=== PATIENT | female | born 1980 | race Caucasian/White ===

== ENCOUNTER 2022-06-13 09:48 | Emergency (ER) | payer MEDICAID ==
[~2022-06-13] VITALS: Ht 165.1 cm; Wt 144.2 kg
[~2022-06-13 09:48] MED LIST: ALB2T
[2022-06-13 10:05] VITALS: BP 141/93
== END 2022-06-13 15:09 | disposition left against medical advice (07) ==
LOC: ER 09:48
DX: J02.9 Acute pharyngitis, unspecified (principal); H92.02 Otalgia, left ear; Z53.21 Procedure and treatment not carried out due to patient leaving prior to being seen by health care provider

== ENCOUNTER 2025-05-18 08:52 | Inpatient (IN) | payer MEDICAID ==
[~2025-05-18] VITALS: Ht 167.6 cm; Wt 88.6 kg
[~2025-05-18 08:52] MED LIST changes: -ALB2T; +ALBU2TAB47; +HYDR-3682 PO; +LORA-622 PO; +PRED20TA2 PO
--- NOTE | 2025-05-18 09:56 | ED.PDOC ---
History of Present Illness HPI Comments Ms. Cheung is a 44 year old female prior medical history of constipation, hypertension, bipolar disease, cervical dysplasia status post hysterectomy, and substance use, who presents today with chief complaint of abdominal pain. The patient states that the last month she has had constant periumbilical pain described as burning/sharp, nonradiating, 7-10/10 intensity, previously aggravated by eating now constant, without relieving factors, associated with nausea and cold sweats. She denies fever, vomiting, diarrhea, flank pain, chest pain, dysuria, hematuria, hematochezia, melena, vaginal discharge or bleeding. Patient states that the pain has become unbearable and she is unable to eat without pain, thus why she presents for evaluation in the emergency department. Chief Complaint: Abdominal Pain Time Seen by MD: 09:30 Primary Care Provider: NONE Allergies: Coded Allergies: Acetaminophen (Verified Adverse Reaction, Unknown, VOMITING, 01/18/23) Hydrocodone (Verified Adverse Reaction, Unknown, VOMITING, 01/18/23) Home Meds Active Scripts Hydroxyzine Hcl (Hydroxyzine Hcl) 25 Mg Tab, 25 MG PO DAILYP PRN for 5 Days, #5 TAB 0 Refills Prov:ALMA DE SANTIAGO [employer]MBEDDED FIRMWARE ENGINEER 01/06/23 Loratadine (Claritin) 10 Mg Tab, 1 TAB PO DAILY for 10 Days, #10 TAB 0 Refills Prov:ALMA DE SANTIAGO [employer]MB[employer]ED FIRMWARE ENGINEER 01/06/23 Prednisone (Prednisone) 20 Mg Tab, 20 MG PO DAILY for 5 Days, #5 TAB 0 Refills Prov:ALMA DE SANTIAGO NP 01/06/23 Reported Medications Albuterol Sulfate (Ventolin) 2 Mg Tb 06/12/10 Information Source: Patient, Relative (Mother) Mode of Arrival: Ambulatory Severity: Mild Timing: Weeks Duration: Since onset Past Medical History PAST MEDICAL HISTORY: HTN Past Medical History (Other): Bipolar disease, constipation Surgical History: Cholecystectomy, Hysterectomy (Due to cervical dysplasia) Surgical History (Other): Gastric sleeve [employer]ACHINE History: Other (Cervical dysplasia) Family History Family History: Family hx of DM, Family hx of HTN Family History (Other): Mother diagnosed with lupus, father with pancreatic cancer Social History Smoker: Non-Smoker Alcohol: Sober (Previous history of heavy alcohol use) Drugs: Methamphetamine (Patient used methamphetamines for 5 years, with cessation 3 years ago) Lives In: Home Constitutional: denies: chills, diaphoresis, fatigue, fever, malaise, sweats, weakness EENTM: denies: blurred vision, double vision, mouth pain, mouth swelling, nasal discharge, nose bleeding, nose congestion, nose pain Respiratory: denies: cough, hemoptysis, orthopnea, shortness of breath Cardiovascular: denies: chest pain, dizzy spells, diaphoresis, Dyspnea on exertion, edema, lightheadedness, palpitations Gastrointestinal: reports: abdominal pain, nausea, poor appetite; denies: abdomen distended, blood streaked bowels, constipated, diarrhea, dysphagia, difficulty swallowing, hematemesis, melena, poor fluid intake, rectal bleeding, rectal pain, vomiting Genitourinary: denies: abnormal vagina bleeding, burning, dysuria, flank pain, frequency, hematuria, incontinence, pain, vagina discharge, urgency Neurological: denies: dizziness, fainting, headache, numbness, paresthesia, seizure, speech problems, tingling, tremors, weakness Musculoskeletal: reports: back pain; denies: joint pain, joint swelling, muscle pain, muscle stiffness, neck pain Integumetry: denies: bruises, dryness, laceration, lesions, lumps, rash, wounds Physical Exam General Appearance: Mild Distress HEENT: Head (Normocephalic, atraumatic ), PERRL/EOMI, Pharynx Normal, Other (Fissured tongue ) Neck: Full Range of Motion, Non-Tender, Normal Inspection Respiratory: Chest Non-Tender, No Accessory Muscle Use, No Respiratory Distress, Normal Breath Sounds Cardiovascular: No Edema, No Murmur, Normal Peripheral Pulses, Regular Rate/Rhythm Breast Exam: Deferred Gastrointestinal: Non Tender, No Pulsatile Mass, Normal Bowel Sounds, Soft Genitalia: Deferred Pelvic: Deferred Rectal: Deferred Extremities: Normal capillary refill, Normal inspection, Normal range of motion, Non-tender, No pedal edema Neurologic: No Motor Deficits, Normal Affect, Normal Mood, No Sensory Deficits Cerebellar Function: Normal Reflexes: NOT DONE Skin: Normal Color Lymphatic: Other (No cervical adenopathy ) Was a procedure done? Was a procedure done?: No Differential Dx Considerations may include: Gastroenteritis, colitis, gastritis, hepatitis, pancreatitis, cholecystitis X-Ray, Labs, Meds, VS Vital Signs Date Time Temp Pulse Resp B/P (MAP) Pulse Ox O2 Delivery O2 Flow Rate FiO2 05/18/25 12:06 70 16 152/100 (117) 100 05/18/25 09:57 80 17 100 Room Air 05/18/25 09:57 98.7 80 16 150/101 (117) 100 98.7 05/18/25 08:54 98.0 83 17 152/96 100 98.0 Lab Test 05/18/25 10:28 05/18/25 09:50 Range/Units White Blood Count 3.7 L 4.4-10.8 10^3/uL Red Blood Count 4.43 4.0-5.20 10^6/uL Hemoglobin 12.7 12.2-16.2 g/dL Hematocrit 37.4 36.0-46.0 % Mean Corpuscular Volume 84.5 80.0-100.0 fL Mean Corpuscular Hemoglobin 28.8 28.0-32.0 pg Mean Corpuscular Hemoglobin Concent 34.0 32.0-36.0 g/dL Red Cell Distribution Width 13.0 11.8-14.3 % Platelet Count 208 140-450 10^3/uL Mean Platelet Volume 8.6 6.9-10.8 fL Neutrophils (%) (Auto) 82.5 H 37.0-80.0 % Lymphocytes (%) (Auto) 11.1 10.0-50.0 % Monocytes (%) (Auto) 4.4 0.0-12.0 % Eosinophils (%) (Auto) 1.3 0.0-7.0 % Basophils (%) (Auto) 0.7 0.0-2.0 % Neutrophils # (Auto) 3.1 1.6-8.6 10 ^3/uL Lymphocytes # (Auto) 0.4 0.4-5.4 10 ^3/uL Monocytes # (Auto) 0.2 0-1.3 10 ^3/uL Eosinophils # (Auto) 0 0-0.8 10 ^3/uL Basophils # (Auto) 0 0-0.2 10 ^3/uL Nucleated Red Blood Cells 0.2 % Sodium Level 137 136-145 mmol/L Potassium Level 4.9 3.5-5.1 mmol/L Chloride Level 102 98-107 mmol/L Carbon Dioxide Level 26 20-31 mmol/L Anion Gap 9 5-15 Blood Urea Nitrogen 18 9-23 mg/dL Creatinine 0.75 0.550-1.02 mg/dL Glomerular Filtration Rate Calc 101 >90 mL/min BUN/Creatinine Ratio 24.0 H 10.0-20.0 Serum Glucose 84 74-106 mg/dL Calcium Level 9.1 8.7-10.4 mg/dL Total Bilirubin 0.5 0.2-1.0 mg/dL Aspartate Amino Transferase (AST) 458 H 13-40 U/L Alanine Aminotransferase (ALT) 171 H 7-40 U/L Alkaline Phosphatase 336 H 46-116 U/L Total Protein 8.2 5.7-8.2 g/dL Albumin 4.2 3.2-4.8 g/dL Lipase 37 12-53 U/L Urine Color Yellow Yellow Urine Clarity Turbid H Clear Urine pH 7.5 5.0-9.0 Urine Specific [place] 1.021 1.001-1.035 Urine Protein Negative Negative Urine Ketones Negative Negative Urine Blood Negative Negative /uL Urine Nitrite Negative Negative Urine Bilirubin Negative Negative Urine Urobilinogen 2 H Negative mg/dL Urine Leukocyte Esterase Negative Negative /uL Urine RBC 2 0 - 4 /hpf Urine Microscopic WBC 1 0-5 /HPF Urine Squamous Epithelial Cells Mod <5 /hpf Urine Bacteria None seen None Seen /hpf Urine Yeast (Budding) Occasional None Seen /hpf Urine Glucose Normal Normal mg/dL Urine Opiates Screen Pos NEGATIVE Urine Fentanyl Screen Neg NEGATIVE Urine Barbiturates Screen Neg NEGATIVE Urine Phencyclidine Screen Neg NEGATIVE Urine Amphetamines Screen Pos NEGATIVE Urine Benzodiazepines Screen Neg NEGATIVE Urine Cocaine Screen Neg NEGATIVE Urine Cannabinoids Screen Neg NEGATIVE Time of 1ST Reevaluation: 12:00 Reevaluation 1ST: Unchanged Patient Education/Counseling: Diagnosis, Treatment Family Education/Counseling: Diagnosis, Treatment Comments Patient presented today with chief complaint of abdominal pain for the last month On examination, vitals were stable, there are dry mucous membranes, without other positive findings CBC shows leukopenia with mild neutrophilia, CMP shows elevated AST, ALT, and ALP, UDS positive for opiates and methamphetamines Abdominal CT shows no acute abdominal findings and a 4 cm right ovarian cystic lesion I discussed with the patient would benefit from admission for further workup and monitoring Consider GI consultation SEPSIS Sepsis Screen Date sepsis recognized/suspect: May 18, 2025 Time Sepsis recognized/suspect: 853 Recent Procedure: No On Antibiotic Therapy: No Respiratory Rate >20: No Heart Rate >90: No Temp<36 C (96.8 F) or >38.3 C: No SBP <90 or MAP <65 mmHG: No New Acute Mental Status Change: No Is the patient on CPAP, BIPAP,: No Physician Orders Ct Ab Pel Wo Con-No Oral Or Iv (05/18/25 09:57) Vital Signs Date Time Temp Pulse Resp B/P (MAP) Pulse Ox O2 Delivery O2 Flow Rate FiO2 05/18/25 12:06 70 16 152/100 (117) 100 05/18/25 09:57 80 17 100 Room Air 05/18/25 09:57 98.7 80 16 150/101 (117) 100 98.7 05/18/25 08:54 98.0 83 17 152/96 100 98.0 Laboratory Tests Test 05/18/25 10:28 White Blood Count 3.7 10^3/uL (4.4-10.8) L Departure 1 Departure Time of Disposition: 12:39 Impression: Primary Impression: Intractable abdominal pain Disposition: 30 STILL A PATIENT Admit to: Med Surg Condition: Stable Critical Care Note Critical Care Time?: No Stability Stability form required: WARREN Coreas RESIDENT May 18, 2025 09:56
--- NOTE | 2025-05-18 10:40 | DVH ---
Exam: CT CT AB PEL WO CON-NO ORAL OR IV History: Abdominal pain Comparison Study: None Technique: Multidetector spiral CT of the abdomen and pelvis was performed from lung bases to pubic s ymphysis. Imaging was performed without intravenous contrast. Coronal and sagittal multiplanar reform ats were obtained from the axial data set by the technologist. Radiation Dose : 1. Abdomen/Pelvis: CTDIvol 15.2 mGy, DLP 816.2 mGy*cm. Findings: Evaluation of vasculature and solid organs is limited due to lack of intravenous contrast use. Lung Bases: Lung bases are clear. Visualized portions of the heart and pericardium are unremarkable. Liver: The liver is normal in size. No focal lesions. Gallbladder and Biliary Tree: The gallbladder is surgically absent. No intrahepatic or extrahepatic b iliary ductal dilatation. Spleen: Unremarkable Pancreas: The pancreas is grossly unremarkable. Adrenal Glands: Unremarkable Kidneys: Kidneys are unremarkable without calculi or hydronephrosis. GI tract: There are postsurgical changes in the stomach. No evidence of small bowel wall thickening o r abnormal dilatation to suggest bowel obstruction. The colon is unremarkable. The appendix is not vi sualized, however no inflammatory changes in the right lower quadrant to suggest acute appendicitis. Peritoneum/mesentery/retroperitoneum. No evidence of free intraperitoneal air. No ascites. No evidenc e of suspicious lymphadenopathy. Abdominal Wall: Unremarkable. Vasculature: The visualized abdominal aorta is normal in size and caliber. Evaluation of abdominal a nd pelvic vessels is limited due to lack of intravenous contrast. Urinary Bladder: Grossly unremarkable for degree of distention. Pelvic Organs: There is a 4.6 cm cystic lesion in the pelvis. Hysterectomy. Musculoskeletal: No aggressive focal bony lesions, acute fractures or dislocation. IMPRESSION: 1. No acute abdominal or pelvic findings. 2. 4.6 cm cystic lesion in the pelvis, likely ovarian in origin. Pelvic ultrasound is recommended for further evaluation.
[2025-05-18 10:59] LABS: Hematocrit 37.4 % (36.0-46.0); Hemoglobin 12.7 g/dL (12.2-16.2); Mean Corpuscular Hemoglobin 28.8 pg (28.0-32.0); Mean Corpuscular Volume 84.5 fL (80.0-100.0); Nucleated Red Blood Cells % 0.2 %
[2025-05-18 11:09] LABS: Urine Budding Yeast OCCASIONAL /hpf (None Seen); Urine Protein, UAD Negative (Negative)
[2025-05-18 11:14] LABS: Albumin 4.2 g/dL (3.2-4.8); Anion Gap 9 (5-15); BUN/Creatinine Ratio 24.0 (10.0-20.0); Bilirubin, Total 0.5 mg/dL (0.2-1.0); Blood Urea Nitrogen 18 mg/dL (9-23); Calcium 9.1 mg/dL (8.7-10.4); Carbon Dioxide 26 mmol/L (20-31); Chloride 102 mmol/L (98-107); Glucose 84 mg/dL (74-106); Lipase 37 U/L (12-53); Potassium 4.9 mmol/L (3.5-5.1); Sodium 137 mmol/L (136-145); Total Protein 8.2 g/dL (5.7-8.2)
[2025-05-18 11:18] LABS: Alanine Aminotransferase 171 U/L (7-40); Alkaline Phosphatase 336 U/L (46-116)
[2025-05-18 11:18] LABS: Amphetamine Screen, Urine Pos (NEGATIVE); Opiate Scree,Urine Pos (NEGATIVE)
[2025-05-18 11:24] LABS: Barbiturate Scree,Urine Neg (NEGATIVE); Benzodiazephine Screen, Urine Neg (NEGATIVE); Cannabinoid Screen, Urine Neg (NEGATIVE); Cocaine Screen, Urine Neg (NEGATIVE); Phencyclidine Screen, Urine Neg (NEGATIVE)
[2025-05-18] MEDS ORDERED: ONDANSETRON HCL 4 MG/2 ML VIAL IV PRN (15:30)
--- NOTE | 2025-05-18 15:37 | DVHHPRES ---
History of Present Illness Resident Creating Document: JEANETH DUARTE RESIDENT History of Present Illness Patient is a 44-year-old female with past medical history of hypertension, who comes in due to acute intractable abdominal pain. According to the patient, she has been experiencing abdominal pain for the past 1 month, which he describes as burning in character, localized to the periumbilical area, 7/10 in intensity without any exacerbating or relieving factors and associated with nausea. Patient notes that over the last 2 days her pain continued to worsen, she had an appointment with her PCP Dr. Vee on 05/27/2025, however, pain continued to become intolerable which is what prompted this visit to the hospital. On review of systems patient is complaining of nausea, urinary frequency. CT abdomen pelvis shows no acute abdominopelvic findings. 4.6 cm cystic lesion in the pelvis likely ovarian in origin. Patient also notes a weight loss of approximately 100 lb since getting the gastric sleeve surgery. Past Medical History Hypertension Past Surgical History Cholecystectomy 23 years ago, hysterectomy 2 years ago, gastric sleeve surgery 1 year ago Family History Pancreatic cancer in father Past Social History Smoking: Denies Alcohol: Denies, remote history of heavy alcohol use for approximately 10 years Drugs: Denies Review of Systems Constitutional: No: Fever, Chills, Sweats, Weakness, Malaise, Other Eyes: No: Pain, Vision change, Conjunctivae inflammation, Eyelid inflammation, Other, Redness ENT: No: Ear pain, Ear discharge, Nose pain, Nose discharge, Nose congestion, Mouth pain, Mouth swelling, Throat pain, Throat swelling, Other Respiratory: No: Cough, Dry, Shortness of breath, SOB with excertion, Wheezing, Hemoptysis, Pleuritic Pain, Sputum, Wheezing, Other Cardiovascular: No: Chest Pain, Palpitations, Orthopnea, Paroxysmal Noc. Dyspnea, Edema, Lt Headedness, Other Gastrointestinal: Nausea; No: Vomiting, Abdominal Pain, Diarrhea, Constipation, Melena, Hematochezia, Other Genitourinary: No Dysuria; Frequency; No Incontinence, No Hematuria, No Retention, No Other Musculoskeletal: No: other, neck pain, shoulder pain, arm pain, back pain, hand pain, leg pain, foot pain Skin: No: Rash, Lesions, Jaundice, Bruising, Other Neurological: No: Weakness, Numbness, Incoordination, Change in speech, Confusion, Seizures, Other Allergies: Coded Allergies: Acetaminophen (Verified Adverse Reaction, Unknown, VOMITING, 01/18/23) Hydrocodone (Verified Adverse Reaction, Unknown, VOMITING, 01/18/23) Exam Vital Signs Vital Signs Date Time Temp Pulse Resp B/P (MAP) Pulse Ox O2 Delivery O2 Flow Rate FiO2 05/18/25 14:03 77 18 111/83 (92) 96 05/18/25 09:57 Room Air 05/18/25 09:57 98.7 98.7 General Appearance: Alert, Oriented X3, Cooperative, mild distress HEENT: Atraumatic, PERRLA, EOMI, Other (Dry mucous membrane) Respiratory: Normal air movement Cardiovascular: Regular rate, Normal S1, Normal S2 Abdominal: Normal bowel sounds, Other (Generalized abdominal tenderness to palpation most prominent in the left upper and lower quadrants) Extremities: No edema Skin: No rashes Neuro: Normal gait, Normal speech Psych/Mental Status: Mental status NL, Mood NL Labs/Xrays Labs Test 05/18/25 10:28 05/18/25 09:50 Range/Units White Blood Count 3.7 L 4.4-10.8 10^3/uL Red Blood Count 4.43 4.0-5.20 10^6/uL Hemoglobin 12.7 12.2-16.2 g/dL Hematocrit 37.4 36.0-46.0 % Mean Corpuscular Volume 84.5 80.0-100.0 fL Mean Corpuscular Hemoglobin 28.8 28.0-32.0 pg Mean Corpuscular Hemoglobin Concent 34.0 32.0-36.0 g/dL Red Cell Distribution Width 13.0 11.8-14.3 % Platelet Count 208 140-450 10^3/uL Mean Platelet Volume 8.6 6.9-10.8 fL Neutrophils (%) (Auto) 82.5 H 37.0-80.0 % Lymphocytes (%) (Auto) 11.1 10.0-50.0 % Monocytes (%) (Auto) 4.4 0.0-12.0 % Eosinophils (%) (Auto) 1.3 0.0-7.0 % Basophils (%) (Auto) 0.7 0.0-2.0 % Neutrophils # (Auto) 3.1 1.6-8.6 10 ^3/uL Lymphocytes # (Auto) 0.4 0.4-5.4 10 ^3/uL Monocytes # (Auto) 0.2 0-1.3 10 ^3/uL Eosinophils # (Auto) 0 0-0.8 10 ^3/uL Basophils # (Auto) 0 0-0.2 10 ^3/uL Nucleated Red Blood Cells 0.2 % Sodium Level 137 136-145 mmol/L Potassium Level 4.9 3.5-5.1 mmol/L Chloride Level 102 98-107 mmol/L Carbon Dioxide Level 26 20-31 mmol/L Anion Gap 9 5-15 Blood Urea Nitrogen 18 9-23 mg/dL Creatinine 0.75 0.550-1.02 mg/dL Glomerular Filtration Rate Calc 101 >90 mL/min BUN/Creatinine Ratio 24.0 H 10.0-20.0 Serum Glucose 84 74-106 mg/dL Calcium Level 9.1 8.7-10.4 mg/dL Total Bilirubin 0.5 0.2-1.0 mg/dL Aspartate Amino Transferase (AST) 458 H 13-40 U/L Alanine Aminotransferase (ALT) 171 H 7-40 U/L Alkaline Phosphatase 336 H 46-116 U/L Total Protein 8.2 5.7-8.2 g/dL Albumin 4.2 3.2-4.8 g/dL Lipase 37 12-53 U/L Urine Color Yellow Yellow Urine Clarity Turbid H Clear Urine pH 7.5 5.0-9.0 Urine Specific [place] 1.021 1.001-1.035 Urine Protein Negative Negative Urine Ketones Negative Negative Urine Blood Negative Negative /uL Urine Nitrite Negative Negative Urine Bilirubin Negative Negative Urine Urobilinogen 2 H Negative mg/dL Urine Leukocyte Esterase Negative Negative /uL Urine RBC 2 0 - 4 /hpf Urine Microscopic WBC 1 0-5 /HPF Urine Squamous Epithelial Cells Mod <5 /hpf Urine Bacteria None seen None Seen /hpf Urine Yeast (Budding) Occasional None Seen /hpf Urine Glucose Normal Normal mg/dL Urine Opiates Screen Pos NEGATIVE Urine Fentanyl Screen Neg NEGATIVE Urine Barbiturates Screen Neg NEGATIVE Urine Phencyclidine Screen Neg NEGATIVE Urine Amphetamines Screen Pos NEGATIVE Urine Benzodiazepines Screen Neg NEGATIVE Urine Cocaine Screen Neg NEGATIVE Urine Cannabinoids Screen Neg NEGATIVE SEPSIS Sepsis Screen Date sepsis recognized/suspect: May 18, 2025 Time Sepsis recognized/suspect: 0854 Recent Procedure: No On Antibiotic Therapy: No Respiratory Rate >20: No Heart Rate >90: No Temp<36 C (96.8 F) or >38.3 C: No SBP <90 or MAP <65 mmHG: No New Acute Mental Status Change: No Is the patient on CPAP, BIPAP,: No Physician Orders Ct Ab Pel Wo Con-No Oral Or Iv (05/18/25 09:57) Vital Signs Date Time Temp Pulse Resp B/P (MAP) Pulse Ox O2 Delivery O2 Flow Rate FiO2 05/18/25 14:03 77 18 111/83 (92) 96 05/18/25 12:06 70 16 152/100 (117) 100 05/18/25 09:57 80 17 100 Room Air 05/18/25 09:57 98.7 80 16 150/101 (117) 100 98.7 05/18/25 08:54 98.0 83 17 152/96 100 98.0 Laboratory Tests Test 05/18/25 10:28 White Blood Count 3.7 10^3/uL (4.4-10.8) L Assessment/Plan Assessment/Plan Acute intractable abdominal pain possibly due to pelvic cystic lesion? Transaminitis - complete abdominal ultrasound - hepatitis panel - serum lipase, serum lactic acid - stool studies - ordered beta hCG Leukopenia Immunocompromised due to above - HIV 1 and 2 - rule out COVID and influenza Essential hypertension - resumed home medication lisinopril 40 mg - resumed home medication amlodipine 2.5 mg PUD prophylaxis: protonix 40mg DVT prophylaxis: Levonox 40mg Goals of care: Full code, discussed for >16 minutes on 05/18/2025 Plan discussed with patient Plan discussed with Dr. Ratliff Plan discussed with: Patient, Other (Mother) Date of Service: May 18, 2025 Billing Provider: JEANETH DUARTE Common Visit Codes: [id number] INP/OBS CARE (HIGH) JEANETH DUARTE May 18, 2025 15:37
[2025-05-18 16:16] LABS: Albumin 4.5 g/dL (3.2-4.8); Anion Gap 7 (5-15); BUN/Creatinine Ratio 23.1 (10.0-20.0); Bilirubin, Total 0.4 mg/dL (0.2-1.0); Blood Urea Nitrogen 18 mg/dL (9-23); Calcium 9.3 mg/dL (8.7-10.4); Carbon Dioxide 26 mmol/L (20-31); Chloride 103 mmol/L (98-107); Glucose 81 mg/dL (74-106); Potassium 4.4 mmol/L (3.5-5.1)
[2025-05-18 16:19] LABS: Alkaline Phosphatase 319 U/L (46-116); Sodium 136 mmol/L (136-145)
[2025-05-18 16:20] LABS: Alanine Aminotransferase 159 U/L (7-40); Total Protein 8.7 g/dL (5.7-8.2)
[2025-05-18 16:39] LABS: COVID19 ANTIGEN SOFIA FIA NEGATIVE (NEGATIVE)
[2025-05-18] MEDS ORDERED: ALBUTEROL SULF 2.5 MG/0.5ML(0.5%) NEB SOLN NEB PRN (16:45)
[2025-05-18 16:55] VITALS: BP 147/84; PULSE 62; RESP 17; TEMP 97.7; O2SAT 100
--- NOTE | 2025-05-18 17:10 | DVH ---
ULTRASOUND ABDOMEN, LIMITED RIGHT UPPER QUADRANT: REASON FOR EXAM: Evaluate right upper quadrant TECHNIQUE: Real-time sector scans in the transverse and longitudinal planes were obtained through th e right upper quadrant of the abdomen. FINDINGS: The liver is borderline enlarged at 17.4 cm in length. The liver demonstrates normal echot exture and smooth surface. There is hepatopetal flow in the portal vein. There is no intrahepatic shira iary ductal dilatation. The common bile duct measures 7 mm. The gallbladder is surgically absent. The pancreas is mostly obscured by bowel gas. The right kidney measures 9.8 cm. No hydronephrosis or nephrolithiasis is identified. There is no e vidence of right renal mass or cyst. The visualized portions of the abdominal aorta demonstrate no evidence of aneurysmal dilatation. The visualized inferior vena cava is unremarkable. There is no free fluid identified in the right upper quadrant. IMPRESSION: Borderline hepatomegaly at 17.4 cm in length. This may be normal in a patient of tall stature. The gallbladder is surgically absent.
--- NOTE | 2025-05-18 17:35 | DVH ---
INDICATION: Pelvic Cystic lesion TECHNIQUE: Multiple real-time grayscale transabdominal sonographic images along with color and duplex Doppler of the uterus and ovaries were obtained. COMPARISON: None FINDINGS: The uterus patient is status post hysterectomy The right ovary measures ovary noted in the pelvic midline measuring 5.4 x 3 by 4.9 cm. There appears to be multiple cystic structures within it and debris. Largest anechoic structure is 3.6 x 2.8 x 4 c m. There appears to be wall thickening measuring 2.3 x 2.9 x 1.9 cm. cm. The left ovary measures indeterminate which ovary is noted in the abdominal midline. cm. Subsequent color and duplex Doppler interrogation of the ovaries demonstrated symmetric vascular flow to both ovaries, though this does not exclude the possibility of torsion due to the dual blood suppl y. IMPRESSION: 1. 0.4 x 3 by 2.9 cm cystic area in the abdominal midline containing multiple anechoic areas. Study i s indeterminate as of the right or left ovary.
[2025-05-18] MEDS ORDERED: LISI40TA16 PO (17:47)
[2025-05-18] MEDS ORDERED: AMLO1TAB21 PO (17:47)
[2025-05-18] MEDS: KETOROLAC TROMETH 30 MG/ML 1ML VIAL IV PRN (18:43)
--- NOTE | 2025-05-18 18:52 | ECG ---
[facility] Test Date: 2025-05-18 Test Time: 18:50:16 Pat Name: ELLEN MENEZES Department: Respiratoy Room: 0236 Gender: F Trim Stencil Maker: JACKY : 1980 Requested By: JEANETH DUARTE Order Number: [id number] Reading MD: Measurements Intervals [place] Rate: 77 P: 11 ND: 140 QRS: 63 QRSD: 105 T: 8 QT: 395 QTc: 448 Interpretive Statements Sinus rhythm Abnormal inferior Q waves Minimal ST elevation, anterior leads Please click the below link to view image of tracing.
[2025-05-18 20:00] VITALS: PULSE 70; RESP 19; O2SAT 100
[2025-05-18 21:00] VITALS: BP 136/82; PULSE 70; RESP 19; TEMP 98.3; O2SAT 100
[2025-05-19] VITALS (10 sets, daily range): BP systolic 118–145; BP diastolic 75–103; PULSE 60–76; RESP 16–19; TEMP 97.5–98.6; O2SAT 98–100
[2025-05-19 05:50] LABS: Hematocrit 34.6 % (36.0-46.0); Hemoglobin 12.0 g/dL (12.2-16.2); Mean Corpuscular Hemoglobin 29.2 pg (28.0-32.0); Mean Corpuscular Volume 84.5 fL (80.0-100.0); Nucleated Red Blood Cells % 0.1 %
[2025-05-19 06:07] LABS: Albumin 3.8 g/dL (3.2-4.8); Anion Gap 8 (5-15); BUN/Creatinine Ratio 25.0 (10.0-20.0); Blood Urea Nitrogen 21 mg/dL (9-23); Calcium 8.8 mg/dL (8.7-10.4); Carbon Dioxide 26 mmol/L (20-31); Chloride 104 mmol/L (98-107); Glucose 77 mg/dL (74-106); Potassium 4.2 mmol/L (3.5-5.1); Sodium 138 mmol/L (136-145); Total Protein 7.3 g/dL (5.7-8.2)
[2025-05-19 06:08] LABS: Alanine Aminotransferase 101 U/L (7-40); Alkaline Phosphatase 224 U/L (46-116); Bilirubin, Total 0.4 mg/dL (0.2-1.0)
[2025-05-19] MEDS ORDERED: LISINOPRIL 20 MG TAB PO SCH (10:00)
[2025-05-19 10:05] LABS: Hepatitis B Surface Antigen Negative (Negative)
[2025-05-19] MEDS: LISINOPRIL 20 MG TAB PO SCH (10:15)
[2025-05-19 10:20] LABS: Hepatitis C Antibody Negative (Negative)
[2025-05-19] MEDS: ENOXAPARIN SOD 40 MG/0.4 ML SYRINGE SC SCH (11:08)
[2025-05-19] MEDS: PANTOPRAZOLE 40 MG/10 ML VIAL INJ IV SCH (11:21)
[2025-05-19] MEDS ORDERED: POLYETHYLENE GLYCOL 17 GM PWDR PO PRN (16:00)
--- NOTE | 2025-05-19 16:14 | DVHPNRES ---
Progress Note Date Seen: May 19, 2025 Resident Creating Document: KENDRICK JACKMAN RESIDENT Medical Necessity Reason Pt with a Central, PICC or Fol: No Subjective Review of Systems History on admission: Patient is a 44-year-old female with past medical history of hypertension, who comes in due to acute intractable abdominal pain. According to the patient, she has been experiencing abdominal pain for the past 1 month, which he describes as burning in character, localized to the periumbilical area, 7/10 in intensity without any exacerbating or relieving factors and associated with nausea. Patient notes that over the last 2 days her pain continued to worsen, she had an appointment with her PCP Dr. Vee on 05/27/2025, however, pain continued to become intolerable which is what prompted this visit to the hospital. On review of systems patient is complaining of nausea, urinary frequency. CT abdomen pelvis shows no acute abdominopelvic findings. 4.6 cm cystic lesion in the pelvis likely ovarian in origin. Patient also notes a weight loss of approximately 100 lb since getting the gastric sleeve surgery. Previous hospitalization: PMHx: Hypertension PSHx: Cholecystectomy 23 years ago, hysterectomy 2 years ago, gastric sleeve surgery 1 year ago Family history: Pancreatic cancer and heart failure in father Social history: Reportedly quit methamphetamine and alcohol use 2 years back. Denies smoking. Home medication: Polyethylene glycol for constipation Allergic history: Acetaminophen hydrocodone ROS: Constitutional: Denies weight loss, fever and chills. HEENT: Denies changes in vision and hearing. Respiratory: Denies shortness of breath and cough Cardiovascular: Denies chest discomfort or palpitations GI: Abdominal pain, constipation and nausea. Denies vomiting, diarrhea : Denies dysuria and urinary frequency. Musculoskeletal: Denies myalgias and joint pain Skin: Denies rash and pruritus. Neurological: Denies dizziness, headache, vision or hearing problems 05/19/2025: Patient was examined at bedside today. No new complaints. Objective vital signs Vital Sign Date Time Temp Pulse Resp B/P (MAP) Pulse Ox O2 Delivery O2 Flow Rate FiO2 05/19/25 12:21 98.0 69 18 145/103 (117) 98 98.0 05/19/25 11:12 0.0 05/19/25 07:23 Room Air 05/19/25 07:23 21 Total Intake and Output 05/18/25 05/18/25 05/19/25 15:00 23:00 07:00 Intake Total 0 ml 200 ml Balance 0 ml 200 ml medications Current Medications Medications Dose Ordered Sig/Jaye Route Start Time Stop Time Status Last Admin Dose Admin Ondansetron HCl 4 mg Q4HP PRN IV 05/18/25 15:30 Enoxaparin Sodium 40 mg DAILY SC 05/19/25 10:00 05/19/25 11:08 40 MG Pantoprazole Sodium 40 mg DAILY IV 05/19/25 10:00 05/19/25 11:21 40 MG Ketorolac Tromethamine 15 mg Q6HPRN PRN IV 05/18/25 16:45 05/23/25 16:44 05/19/25 11:22 15 MG Albuterol 1.25 mg Q4HPRN PRN NEB 05/18/25 16:45 Lisinopril 40 mg HS PO 05/19/25 10:15 Amlodipine Besylate 2.5 mg DAILY PO 05/19/25 14:00 Polyethylene Glycol 17 gm DAILYPRN PRN PO 05/19/25 16:00 UNV Examination General: Patient alert and oriented in person, place and time. Patient following commands. HEENT: Normocephalic, atraumatic, moist mucous membranes Respiratory/pulmonary: Clear lungs bilaterally, vesicular murmurs present in almost all lung abdul, no associated crackles or wheezes. Cardiovascular: Normal heart sounds S1 and S2 with no associated murmurs Abdomen: Generalized abdominal tenderness on deep palpation Extremities: There is no peripheral edema present at the lower extremities. Peripheral Pulses: 3+ Radial (R). 3+ Radial (L). 3+ Dorsalis pedis (R). 3+ Dorsalis pedis(L) Skin: No rashes or pruritus, there is no sacral edema present at this time. Neurological: Intact cranial nerves with no focal neurologic deficits laboratory and microbiology Laboratory Tests 05/19/25 04:46 Test 05/19/25 04:46 Range/Units Serum Glucose 77 74-106 mg/dL Microbiology Date/Time Source Procedure Growth Status 05/19/25 08:55 Stool Stool Culture - Preliminary Resulted 05/19/25 08:55 Stool Shiga Toxin I & II - Final Resulted Problem List/Assessment/Plan Problem List/Assessment/Plan Acute intractable abdominal pain possibly due to pelvic cystic lesion? Transaminitis Hepatomegaly Family history of pancreatic cancer Pelvic ultrasound shows 0.4 x 3 by 2.9 cm cystic area in the abdominal midline containing multiple anechoic areas Ultrasound abdomen shows Borderline hepatomegaly at 17.4 cm in length. Hepatitis panel shows liver enzymes trending down Stool occult blood negative CA 19 9, CA 125, beta HCG ordered Leukopenia Immunocompromised due to above HIV 1 and 2 negative Ruled out COVID and influenza Essential hypertension Resumed home medication lisinopril, amlodipine Polysubstance abuse UDS positive for cannabinoids, amphetamines, opiates Patient counseled on bedside for more than 16 minutes to quit drug use DIET: Clear liquid diet DVT PROPHYLAXIS: Lovenox GI PROPHYLAXIS: Protonix CODE STATUS: Goals of care discussed with patient at bedside for more than 18 minutes. Full code DISPOSITION: Med/surge This medical document was created using an electronic medical record system with [employer] direct computerized dictation system. Although this document has been carefully reviewed, there may still be some phonetic and typographical errors. These areas are purely typographical due to imperfections of the software programs, and do not reflect any compromise in the patient's medical care. Patient's status and plan discussed with the patient. Case discussed with Dr. Ratliff Plan discussed with: Patient, Other (Nurses) My Orders My Orders Orders - KENDRICK JACKMAN Procedure Category Date Status Time Amlodipine Tablet PHA 05/19/25 In Process (Norvasc Tablet) 14:00 Polyethylene Glycol PHA 05/19/25 Logged 17g Powder (Miralax 16:00 Date of Service: May 19, 2025 Billing Provider: JONATHON RATLIFF MD Common Visit Codes: [id number] INP/OBS CARE(HIGH) KENDRICK JACKMAN RESIDENT May 19, 2025 16:14
[2025-05-20 05:00] VITALS: BP 122/78; PULSE 67; RESP 18; TEMP 98.5; O2SAT 99
[2025-05-20 05:19] LABS: Hematocrit 33.6 % (36.0-46.0); Hemoglobin 11.8 g/dL (12.2-16.2); Mean Corpuscular Hemoglobin 29.4 pg (28.0-32.0); Mean Corpuscular Volume 84.1 fL (80.0-100.0); Nucleated Red Blood Cells % 0.0 %
[2025-05-20 05:26] LABS: Albumin 3.7 g/dL (3.2-4.8); Anion Gap 7 (5-15); BUN/Creatinine Ratio 13.8 (10.0-20.0); Bilirubin, Total 0.4 mg/dL (0.2-1.0); Blood Urea Nitrogen 12 mg/dL (9-23); Carbon Dioxide 26 mmol/L (20-31); Chloride 105 mmol/L (98-107); Glucose 82 mg/dL (74-106); Potassium 4.5 mmol/L (3.5-5.1); Sodium 138 mmol/L (136-145); Total Protein 7.2 g/dL (5.7-8.2)
[2025-05-20 05:27] LABS: Alanine Aminotransferase 65 U/L (7-40); Alkaline Phosphatase 174 U/L (46-116); Calcium 8.7 mg/dL (8.7-10.4)
[2025-05-20 08:00] VITALS: PULSE 78; RESP 18; O2SAT 96
[2025-05-20 09:00] VITALS: BP 130/90; PULSE 78; RESP 18; TEMP 97.8; O2SAT 99
[2025-05-20 09:44] VITALS: O2SAT 98
[2025-05-20 13:00] VITALS: BP 122/92; PULSE 73; RESP 18; TEMP 98.2; O2SAT 96
[2025-05-20] MEDS ORDERED: PANT40TA2 PO (13:29)
[2025-05-20 15:10] VITALS: BP 130/90
--- NOTE | 2025-05-20 19:28 | DVHSR ---
APPROVED REPORT EXAM: Two-dimensional and M-mode echocardiogram with Doppler and color Doppler. Blood Pressure: 119/81 mmHg INDICATION r/o heart disease RISK FACTORS DIMENSIONS LVDd4.8 (3.8-5.7cm)LA (2D)3.9 (1.9-4.0cm)Aortic Root3.1 (2.0-3.7cm) LVDs3.1 (2.5-4.0cm)LA (MM) (1.9-4.0cm)Aortic Cusp Exc1.5 (1.5-2.0cm) EF (%) 60.0 (55-70%)Rt. Atrium3.0 (1.9-4.0cm)Asc. Aorta3.1 cm IVSd0.8 (0.7-1.1cm)RV (D)3.4 (1.8-2.4cm) PWd0.8 (0.7-1.1cm) Mitral Valve MitralMitral Stenosis E wave0.80m/sMV Mean GR.mmHg A wave0.97m/sMV Peak GR.72mmHg E/A ratio0.82D MVAcm2 DECEL [id number] 1/2 Tim[place] Aortic Valve Aortic ValveAortic Stenosis V11.10m/Yon Mean GR.4mmHg V21.42m/Yon Peak GR.8mmHg LVOT Diameter2.1 (1.8-2.4cm)Doppler AVA2.68cm2 Pulmonic Valve V21.00m/s Tricuspid Valve TR Velocity2.46m/s [id number] Conclusion Technically good study sinus rhythm. Normal chamber sizes. Valves are normal. EF of 60% with normal RV function. Dopplers unremarkable. Mild TR. No pericardial effusion masses or vegetations.
--- NOTE | 2025-05-21 11:11 | DVHDSRES ---
Discharge Summary Date of Admission Resident Creating Document: KENDRICK JACKMAN RESIDENT May 18, 2025 at 15:19 Date of Discharge: May 20, 2025 Labs/Diagnostic Data: Laboratory Results Test 05/20/25 04:30 05/19/25 08:55 05/19/25 04:46 05/18/25 16:04 White Blood Count 2.6 10^3/uL (4.4-10.8) Red Blood Count 4.00 10^6/uL (4.0-5.20) Hemoglobin 11.8 g/dL (12.2-16.2) Hematocrit 33.6 % (36.0-46.0) Mean Corpuscular Volume 84.1 fL (80.0-100.0) Mean Corpuscular Hemoglobin 29.4 pg (28.0-32.0) Mean Corpuscular Hemoglobin Concent 34.9 g/dL (32.0-36.0) Red Cell Distribution Width 13.0 % (11.8-14.3) Platelet Count 188 10^3/uL (140-450) Mean Platelet Volume 8.4 fL (6.9-10.8) Neutrophils (%) (Auto) 64.4 % (37.0-80.0) Lymphocytes (%) (Auto) 19.7 % (10.0-50.0) Monocytes (%) (Auto) 10.8 % (0.0-12.0) Eosinophils (%) (Auto) 3.9 % (0.0-7.0) Basophils (%) (Auto) 1.2 % (0.0-2.0) Neutrophils # (Auto) 1.7 10 ^3/uL (1.6-8.6) Lymphocytes # (Auto) 0.5 10 ^3/uL (0.4-5.4) Monocytes # (Auto) 0.3 10 ^3/uL (0-1.3) Eosinophils # (Auto) 0.1 10 ^3/uL (0-0.8) Basophils # (Auto) 0 10 ^3/uL (0-0.2) Nucleated Red Blood Cells 0.0 % Sodium Level 138 mmol/L (136-145) Potassium Level 4.5 mmol/L (3.5-5.1) Chloride Level 105 mmol/L (98-107) Carbon Dioxide Level 26 mmol/L (20-31) Anion Gap 7 (5-15) Blood Urea Nitrogen 12 mg/dL (9-23) Creatinine 0.87 mg/dL (0.550-1.02) Glomerular Filtration Rate Calc 85 mL/min (>90) BUN/Creatinine Ratio 13.8 (10.0-20.0) Serum Glucose 82 mg/dL (74-106) Calcium Level 8.7 mg/dL (8.7-10.4) Total Bilirubin 0.4 mg/dL (0.2-1.0) Aspartate Amino Transferase (AST) 44 U/L (13-40) Alanine Aminotransferase (ALT) 65 U/L (7-40) Alkaline Phosphatase 174 U/L (46-116) Total Protein 7.2 g/dL (5.7-8.2) Albumin 3.7 g/dL (3.2-4.8) Stool Occult Blood Negative (Negative) Stool Occult Blood Sample #3 (Negative) Stool for White Cells None seen Plasma/Serum Blood Alcohol < 3.0 mg/dL (<10) Influenza Type A Antigen Negative (Negative) Influenza Type B Antigen Negative (Negative) SARS-CoV-2 Antigen (Rapid) Negative (NEGATIVE) Test 05/18/25 15:45 05/18/25 09:50 Lactic Acid Level 1.0 mmol/L (0.4-2.0) B-Type Natriuretic Peptide 11.37 pg/mL (0-100) Lipase 32 U/L (12-53) CA 19-9 Antigen 17 U/mL (0-35) CA 125 Antigen 9.0 U/mL (0.0-38.1) Beta HCG, Quantitative 0.3 mIU/mL (1.5-4.2) Acetaminophen Level < 2.0 UG/ML (10.0-20.0) Hepatitis A IgM Antibody Negative Hepatitis B Surface Antigen Negative (Negative) Hepatitis B Core IgM Antibody Negative (Negative) Hepatitis C Antibody Negative (Negative) HIV (1&2) Antibody Negative (Negative) Urine Color Yellow (Yellow) Urine Clarity Turbid (Clear) Urine pH 7.5 (5.0-9.0) Urine Specific [place] 1.021 (1.001-1.035) Urine Protein Negative (Negative) Urine Ketones Negative (Negative) Urine Blood Negative /uL (Negative) Urine Nitrite Negative (Negative) Urine Bilirubin Negative (Negative) Urine Urobilinogen 2 mg/dL (Negative) Urine Leukocyte Esterase Negative /uL (Negative) Urine RBC 2 /hpf (0 - 4) Urine Microscopic WBC 1 /HPF (0-5) Urine Squamous Epithelial Cells Mod /hpf (<5) Urine Bacteria None seen /hpf (None Seen) Urine Yeast (Budding) Occasional /hpf (None Urine Glucose Normal mg/dL (Normal) Urine Opiates Screen Pos (NEGATIVE) Urine Fentanyl Screen Neg (NEGATIVE) Urine Barbiturates Screen Neg (NEGATIVE) Urine Phencyclidine Screen Neg (NEGATIVE) Urine Amphetamines Screen Pos (NEGATIVE) Urine Benzodiazepines Screen Neg (NEGATIVE) Urine Cocaine Screen Neg (NEGATIVE) Urine Cannabinoids Screen Neg (NEGATIVE) Other Laboratory Tests 05/20/25 04:30 Brief Hx & Hospital Course: History on admission: Patient is a 44-year-old female with past medical history of hypertension, who comes in due to acute intractable abdominal pain. According to the patient, she has been experiencing abdominal pain for the past 1 month, which he describes as burning in character, localized to the periumbilical area, 7/10 in intensity without any exacerbating or relieving factors and associated with nausea. Patient notes that over the last 2 days her pain continued to worsen, she had an appointment with her PCP Dr. Vee on 05/27/2025, however, pain continued to become intolerable which is what prompted this visit to the hospital. On review of systems patient is complaining of nausea, urinary frequency. CT abdomen pelvis shows no acute abdominopelvic findings. 4.6 cm cystic lesion in the pelvis likely ovarian in origin. Patient also notes a weight loss of approximately 100 lb since getting the gastric sleeve surgery. She reported taking multiple Tylenol tablets, rounding of to 4 g dosing daily. Brief hospital stay: Initial labs showed leukopenia, elevated liver panels; hepatitis, HIV, influenza and COVID serologies were negative. Pelvic ultrasound shows 0.4 x 3 by 2.9 cm cystic area in the abdominal midline containing multiple anechoic areas. Ultrasound abdomen shows Borderline hepatomegaly at 17.4 cm in length. She was started on supportive management with Zofran, Protonix, pain management and her home medications were reconciled. Hepatitis panel shows liver enzymes trending down. She was counseled on avoiding overdosing [id number] pain medications. Her condition has improved and she is stable for discharge. Conditions treated during stay: Acute intractable abdominal pain likely due to pelvic cystic lesion Transaminitis Hepatomegaly Family history of pancreatic cancer Leukopenia Immunocompromised due to above Essential hypertension Polysubstance abuse Plan: Trial of Protonix p.o daily for 2 weeks Continue home medications Follow with PCP in 1 week Follow with PCP in outpatient clinic for further evaluation of leukopenia Operations or Procedures INDICATION: Pelvic Cystic lesion TECHNIQUE: Multiple real-time grayscale transabdominal sonographic images along with color and duplex Doppler of the uterus and ovaries were obtained. COMPARISON: None FINDINGS: The uterus patient is status post hysterectomy The right ovary measures ovary noted in the pelvic midline measuring 5.4 x 3 by 4.9 cm. There appears to be multiple cystic structures within it and debris. Largest anechoic structure is 3.6 x 2.8 x 4 cm. There appears to be wall thickening measuring 2.3 x 2.9 x 1.9 cm. cm. The left ovary measures indeterminate which ovary is noted in the abdominal midline. cm. Subsequent color and duplex Doppler interrogation of the ovaries demonstrated symmetric vascular flow to both ovaries, though this does not exclude the possibility of torsion due to the dual blood supply. IMPRESSION: 1. 0.4 x 3 by 2.9 cm cystic area in the abdominal midline containing multiple anechoic areas. Study is indeterminate as of the right or left ovary. ULTRASOUND ABDOMEN, LIMITED RIGHT UPPER QUADRANT: REASON FOR EXAM: Evaluate right upper quadrant TECHNIQUE: Real-time sector scans in the transverse and longitudinal planes were obtained through the right upper quadrant of the abdomen. FINDINGS: The liver is borderline enlarged at 17.4 cm in length. The liver demonstrates normal echotexture and smooth surface. There is hepatopetal flow in the portal vein. There is no intrahepatic biliary ductal dilatation. The common bile duct measures 7 mm. The gallbladder is surgically absent. The pancreas is mostly obscured by bowel gas. The right kidney measures 9.8 cm. No hydronephrosis or nephrolithiasis is identified. There is no evidence of right renal mass or cyst. The visualized portions of the abdominal aorta demonstrate no evidence of aneurysmal dilatation. The visualized inferior vena cava is unremarkable. There is no free fluid identified in the right upper quadrant. IMPRESSION: Borderline hepatomegaly at 17.4 cm in length. This may be normal in a patient of tall stature. The gallbladder is surgically absent. Exam: CT CT AB PEL WO CON-NO ORAL OR IV History: Abdominal pain Comparison Study: None Technique: Multidetector spiral CT of the abdomen and pelvis was performed from lung bases to pubic symphysis. Imaging was performed without intravenous contrast. Coronal and sagittal multiplanar reformats were obtained from the axial data set by the technologist. Radiation Dose : 1. Abdomen/Pelvis: CTDIvol 15.2 mGy, DLP 816.2 mGy*cm. Findings: Evaluation of vasculature and solid organs is limited due to lack of intravenous contrast use. Lung Bases: Lung bases are clear. Visualized portions of the heart and pericardium are unremarkable. Liver: The liver is normal in size. No focal lesions. Gallbladder and Biliary Tree: The gallbladder is surgically absent. No intrahepatic or extrahepatic biliary ductal dilatation. Spleen: Unremarkable Pancreas: The pancreas is grossly unremarkable. Adrenal Glands: Unremarkable Kidneys: Kidneys are unremarkable without calculi or hydronephrosis. GI tract: There are postsurgical changes in the stomach. No evidence of small bowel wall thickening or abnormal dilatation to suggest bowel obstruction. The colon is unremarkable. The appendix is not visualized, however no inflammatory changes in the right lower quadrant to suggest acute appendicitis. Peritoneum/mesentery/retroperitoneum. No evidence of free intraperitoneal air. No ascites. No evidence of suspicious lymphadenopathy. Abdominal Wall: Unremarkable. Vasculature: The visualized abdominal aorta is normal in size and caliber. Evaluation of abdominal and pelvic vessels is limited due to lack of intravenous contrast. Urinary Bladder: Grossly unremarkable for degree of distention. Pelvic Organs: There is a 4.6 cm cystic lesion in the pelvis. Hysterectomy. Musculoskeletal: No aggressive focal bony lesions, acute fractures or dislocation. IMPRESSION: 1. No acute abdominal or pelvic findings. 2. 4.6 cm cystic lesion in the pelvis, likely ovarian in origin. Pelvic ultrasound is recommended for further evaluation. Condition at Discharge: Stable Final Diagnosis/Problems List Acute intractable abdominal pain likely due to pelvic cystic lesion Transaminitis due to tylenol overuse Hepatomegaly Family history of pancreatic cancer Leukopenia Immunocompromised due to above Essential hypertension Polysubstance abuse Discharge Disposition: Home Discharge Instruct/Medications Diet: Cardiac 2g Na,low cholest Activity: No Restrictions, As Tolerated Follow Up/Referral: Follow up with PCP in 1 week Medications: As per EHR Scheduled Amlodipine Besylate (Amlodipine Besylate), 1 TAB PO DAILY, (Reported) Lisinopril (Lisinopril), 1 TAB PO DAILY, (Reported) Loratadine (Claritin), 1 TAB PO DAILY Prednisone (Prednisone), 20 MG PO DAILY Scheduled PRN Hydroxyzine Hcl (Hydroxyzine Hcl), 25 MG PO DAILYP PRN Discontinued Medications Albuterol Sulfate (Ventolin), (Reported) Discharge Statement: "Patient was advised to return to the ER or call 911 if any headaches, dizziness, shortness of breath, chest pain, abdominal pain, bleeding, fevers, or worsening of medical condition. Patient was counseled about treatment plan, medications, possible side effects, patientverbalized understanding. All questions were answered to the best of my ability. This discharge took greater then 30 minutes in planning, reviewing documentation, counseling the patient, and discussing with other team members." ASSESSMENT ASSESSMENT Assessment Acute intractable abdominal pain likely due to pelvic cystic lesion Transaminitis due to tylenol overuse Hepatomegaly Family history of pancreatic cancer Leukopenia Immunocompromised due to above Essential hypertension Polysubstance abuse Date of Service: May 20, 2025 Billing Provider: JONATHON LAL MD Common Visit Codes: [id number]/OBS DISCH DAY >30min KENDRICK JACKMAN RESIDENT May 20, 2025 12:43
== END 2025-05-20 15:35 | disposition home or self-care (01) | DRG 532 ==
LOC: ER 08:52 → OVERFLOW 15:19 → EAST 16:57
PROVIDERS: ADMIT Internal Medicine Geriatric Medicine; ATTEND Internal Medicine Geriatric Medicine
DX: N94.89 Other specified conditions associated with female genital organs and menstrual cycle (principal); R16.0 Hepatomegaly, not elsewhere classified; D84.9 Immunodeficiency, unspecified; I10 Essential (primary) hypertension; F31.9 Bipolar disorder, unspecified; R74.01 Elevation of levels of liver transaminase levels; F14.10 Cocaine abuse, uncomplicated; F15.10 Other stimulant abuse, uncomplicated; F11.10 Opioid abuse, uncomplicated; Z20.822 Contact with and (suspected) exposure to COVID-19; Z79.899 Other long term (current) drug therapy; Z82.49 Family history of ischemic heart disease and other diseases of the circulatory system; Z83.3 Family history of diabetes mellitus; Z90.710 Acquired absence of both cervix and uterus; Z87.410 Personal history of cervical dysplasia; Z80.0 Family history of malignant neoplasm of digestive organs; Z88.6 Allergy status to analgesic agent; Z88.5 Allergy status to narcotic agent; Z90.49 Acquired absence of other specified parts of digestive tract
CPT/HCPCS: 36415; 74176; 76705; 76856; 80053; 80074; 80307; 80320; 80329; 81001; 82270; 83605; 83690; 83880; 84702; 85025; 85048; 86301; 86304; 86703; 87045; 87177; 87426; 87427; 87804; 93005; 93306; G0378; J1885; J2470